=== PATIENT | male | born 1945 | race Hispanic/Latino ===

== ENCOUNTER → 2018-05-02 | Outpatient (CLI) | payer MEDICARE | END | disposition home or self-care (01) | LOC: SHCH 12:34 | PROVIDERS: ATTEND Internal Medicine Cardiovascular Disease | DX: I70.0 Atherosclerosis of aorta (principal); I10 Essential (primary) hypertension; I48.91 Unspecified atrial fibrillation | CPT/HCPCS: 93306 ==

== ENCOUNTER → 2021-11-04 | Outpatient (CLI) | payer MEDICARE | END | disposition home or self-care (01) | LOC: SHCH 10:21 | PROVIDERS: ATTEND Internal Medicine Cardiovascular Disease | DX: I87.2 Venous insufficiency (chronic) (peripheral) (principal) | CPT/HCPCS: 93970 ==

== ENCOUNTER 2022-01-07 17:56 | Emergency (ER) | payer MEDICARE ==
[~2022-01-07] VITALS: Ht 165.1 cm; Wt 67.1 kg
[2022-01-07 21:10] LABS: BASOPHILS % (AUTO) 0.6 % (0.0-5.0); EOSINOPHILS % (AUTO) 2.8 % (0.0-8.0); HEMATOCRIT 33.1 % (42-54); LYMPHOCYTES % (AUTO) 24.2 % (21.0-51.0); MEAN CORPUSCULAR HEMOGLOBIN 28.3 pg (27.0-33.0); MEAN CORPUSCULAR VOLUME 88.3 fL (79-99); MONOCYTES % (AUTO) 10.9 % (3.0-13.0); NEUTROPHILS % (AUTO) 61.3 % (40.0-77.0); PLATELET COUNT (AUTO) 228 K/uL (130-400); RED BLOOD CELL COUNT(AUTO) 3.75 MIL/uL (4.50-6.20)
[2022-01-07 21:22] LABS: CREATININE 1.6 mg/dL (0.5-1.5); POTASSIUM 4.1 mmol/L (3.5-5.1)
[2022-01-07 21:28] LABS: ALBUMIN 2.8 g/dL (3.5-5.0); BILIRUBIN,TOTAL 0.3 mg/dL (0.2-1.0); TOTAL PROTEIN, SERUM 7.5 g/dL (6.0-8.3)
[2022-01-07] MEDS ORDERED: LEVOFLOXACIN 750 MG/D5W 150 ML 150 ML IV SCH (22:00)
[2022-01-07] MEDS ORDERED: CLINDAMYCIN IVPB 600MG/50ML 50 ML IV SCH (22:00)
[2022-01-07 22:12] LABS: HEMOGLOBIN A1C 7.6 % (4.0-6.0)
[2022-01-08] MEDS ORDERED: BACI3.5O22 OP (00:05)
[2022-01-08] MEDS ORDERED: TRAM50TA4 PO (00:05)
[2022-01-08] MEDS ORDERED: INSU100I35 SQ ×2 (00:05)
[2022-01-08] MEDS ORDERED: DOXY100T2 PO (00:05)
[2022-01-08] MEDS ORDERED: NITR0.4T SL (00:14)
[2022-01-08] MEDS ORDERED: DILT30 PO (00:14)
[2022-01-08] MEDS ORDERED: POLY17PO4 PO (00:14)
[2022-01-08] MEDS ORDERED: METF-446 PO (00:14)
[2022-01-08] MEDS ORDERED: RANO500T2 PO (00:14)
[2022-01-08] MEDS ORDERED: WARF2.5T85 PO (00:14)
[2022-01-08] MEDS ORDERED: CEPH500B PO (00:14)
[2022-01-08] MEDS ORDERED: MULT-1289 PO (00:14)
[2022-01-08] MEDS ORDERED: TAMS-1 PO (00:14)
[2022-01-08] MEDS ORDERED: ISOS20TA85 PO (00:14)
[2022-01-08] MEDS ORDERED: UREA113. TP (00:14)
[2022-01-08] MEDS ORDERED: CYCL5TAB PO (00:14)
[2022-01-08] MEDS ORDERED: ATOR10 PO (00:14)
[2022-01-08] MEDS ORDERED: ASPI-1197 PO (00:14)
[2022-01-08] MEDS ORDERED: LEVO750T46 PO (01:44)
[2022-01-08] MEDS ORDERED: CLIN-141 PO (01:44)
[2022-01-08 02:12] VITALS: BP 142/18
== END 2022-01-08 02:04 | disposition home or self-care (01) ==
LOC: EDH 17:56
DX: E11.621 Type 2 diabetes mellitus with foot ulcer (principal); L97.519 Non-pressure chronic ulcer of other part of right foot with unspecified severity; E78.00 Pure hypercholesterolemia, unspecified; Z20.822 Contact with and (suspected) exposure to COVID-19; I11.9 Hypertensive heart disease without heart failure; Z79.01 Long term (current) use of anticoagulants; Z79.4 Long term (current) use of insulin; Z79.82 Long term (current) use of aspirin
CPT/HCPCS: 36415; 73630; 73700; 80053; 83036; 85025; 85651; 86140; 87070; 87076; 87077; 87186; 87635; 96365; 96366; 96368; 99285; C9803; J1956; J3490

== ENCOUNTER → 2022-05-20 | Outpatient (CLI) | payer MEDICARE ==
[~2022-05-20] MED LIST: ASPI-1197 PO; ATOR10 PO; BACI3.5O22 OP; CEPH500B PO; CLIN-141 PO; CYCL5TAB PO; DILT30 PO; DOXY100T2 PO; INSU100I35 SQ; ISOS20TA85 PO; LEVO750T46 PO; METF-446 PO; MULT-1289 PO; NITR0.4T SL; POLY17PO4 PO; RANO500T2 PO; TAMS-1 PO; TRAM50TA4 PO; UREA113. TP; WARF2.5T85 PO
[2022-05-20 12:30] LABS: EOSINOPHILS % (AUTO) 6.3 % (0.0-8.0); HEMATOCRIT 27.5 % (42-54); MEAN CORPUSCULAR HEMOGLOBIN 27.6 pg (27.0-33.0); MEAN CORPUSCULAR VOLUME 86.2 fL (79-99); MONOCYTES % (AUTO) 6.6 % (3.0-13.0); NEUTROPHILS % (AUTO) 53.6 % (40.0-77.0); PLATELET COUNT (AUTO) 300 K/uL (130-400); RED BLOOD CELL COUNT(AUTO) 3.19 MIL/uL (4.50-6.20); RED CELL DISTRIBUTION WIDTH 16.2 % (11.0-15.5); WHITE BLOOD COUNT (AUTO) 3.8 K/uL (4.8-10.8)
[2022-05-20 12:49] LABS: CREATININE 1.5 mg/dL (0.5-1.5); POTASSIUM 4.7 mmol/L (3.5-5.1)
[2022-05-20 12:58] LABS: INR 2.81 (0.85-1.15); PROTHROMBIN TIME 28.9 SEC (9.6-11.6)
[2022-05-20 12:59] LABS: PARTIAL THROMBOPLASTIN TIME 44.1 SEC (26.3-35.5)
== END | disposition home or self-care (01) ==
LOC: LAB 08:31
PROVIDERS: ATTEND Internal Medicine Cardiovascular Disease
DX: I25.118 Atherosclerotic heart disease of native coronary artery with other forms of angina pectoris (principal); I11.9 Hypertensive heart disease without heart failure; I48.21 Permanent atrial fibrillation; Z79.01 Long term (current) use of anticoagulants; Z95.5 Presence of coronary angioplasty implant and graft
CPT/HCPCS: 36415; 80048; 85025; 85610; 85730

== ENCOUNTER 2022-06-18 19:36 | Inpatient (IN) | payer MEDICARE ==
[~2022-06-18] VITALS: Ht 165.1 cm; Wt 70.4 kg
[2022-06-18] MEDS ORDERED: ZOSYN 3.375GM +NS 50ML IV SCH (20:00)
[2022-06-18] MEDS ORDERED: VANCOMYCIN 1G VIAL IVPB ONE (20:00)
[2022-06-18 20:05] LABS: APPEARANCE,URINE CLEAR (CLEAR); BILIRUBIN,URINE NEGATIVE (NEGATIVE); COLOR,URINE YELLOW (YELLOW); GLUCOSE, URINE (UA) NEGATIVE (NEGATIVE); KETONES,URINE NEGATIVE (NEGATIVE); LEUKOCYTE ESTERASE ,URINE NEGATIVE (NEGATIVE); NITRATE,URINE NEGATIVE (NEGATIVE); OCCULT BLOOD,URINE NEGATIVE (NEGATIVE); PROTEIN,URINE NEGATIVE (NEGATIVE); UROBILINOGEN,URINE 0.2 mg/dL (0.2-1.0)
[2022-06-18 20:05] LABS: BASOPHILS % (AUTO) 0.1 % (0.0-5.0); EOSINOPHILS % (AUTO) 0.7 % (0.0-8.0); HEMATOCRIT 25.8 % (42-54); LYMPHOCYTES % (AUTO) 12.7 % (21.0-51.0); MEAN CORPUSCULAR HEMOGLOBIN 27.2 pg (27.0-33.0); MEAN CORPUSCULAR HGB CONC 32.9 g/dL (32.0-36.0); MEAN CORPUSCULAR VOLUME 82.4 fL (79-99); MONOCYTES % (AUTO) 8.3 % (3.0-13.0); NEUTROPHILS % (AUTO) 77.9 % (40.0-77.0); PLATELET COUNT (AUTO) 265 K/uL (130-400); RED BLOOD CELL COUNT(AUTO) 3.13 MIL/uL (4.50-6.20); RED CELL DISTRIBUTION WIDTH 17.8 % (11.0-15.5)
[2022-06-18 20:17] LABS: CREATININE 1.9 mg/dL (0.5-1.5); POTASSIUM 4.3 mmol/L (3.5-5.1)
[2022-06-18 20:21] LABS: ALBUMIN 2.5 g/dL (3.5-5.0); TOTAL PROTEIN, SERUM 7.7 g/dL (6.0-8.3)
[2022-06-18] MEDS ORDERED: KETOROLAC 15MG/ML VIAL (15MG/ML) ONE (20:41)
[2022-06-18 20:42] LABS: CRP QUANTITATIVE 129.2 mg/L (0.00-9.0)
[2022-06-18 21:17] LABS: INR > 7.00 (0.85-1.15); PARTIAL THROMBOPLASTIN TIME 92.4 SEC (26.3-35.5); PROTHROMBIN TIME 85.9 SEC (9.6-11.6)
[2022-06-18] MEDS ORDERED: ONDANSETRON 4MG INJ IV PRN (21:30)
[2022-06-18] MEDS ORDERED: ACETAMINOPHEN 325 MG TAB PO PRN ×2 (21:30)
[2022-06-18] MEDS ORDERED: VANCOMYCIN 1G/250ML KIT 250 ML IV ONE (21:30)
[2022-06-18] MEDS ORDERED: VANCOMYCIN PROTOCOL PER PHARMACY IV PRN (21:30)
[2022-06-18] MEDS: 0.9%NACL 1000ML 1,000 ML IV SCH (21:43)
[2022-06-18] MEDS: PHYTONADIONE 10 MG/1 ML AMP IM ONE ×2 (21:52→21:54)
[2022-06-18] MEDS ORDERED: WARF2.5T85 PO (22:31)
[2022-06-18] MEDS ORDERED: OMEP20TA20 PO (22:31)
[2022-06-18] MEDS ORDERED: LISI2.5T13 PO (22:31)
[2022-06-18] MEDS ORDERED: ATOR10 PO (22:31)
[2022-06-18] MEDS ORDERED: DILT30TA3 PO (22:31)
[2022-06-18] MEDS ORDERED: ISOS30TA92 PO (22:31)
[2022-06-18] MEDS ORDERED: RANO500T6 PO (22:31)
[2022-06-18] MEDS ORDERED: TAMS-1 PO (22:31)
[2022-06-18 23:00] VITALS: BP 107/61
[2022-06-19 04:33] VITALS: BP 112/66
[2022-06-19 05:06] LABS: BASOPHILS % (AUTO) 0.3 % (0.0-5.0); EOSINOPHILS % (AUTO) 1.9 % (0.0-8.0); HEMATOCRIT 22.5 % (42-54); LYMPHOCYTES % (AUTO) 13.8 % (21.0-51.0); MEAN CORPUSCULAR HEMOGLOBIN 26.9 pg (27.0-33.0); MONOCYTES % (AUTO) 8.7 % (3.0-13.0); NEUTROPHILS % (AUTO) 74.8 % (40.0-77.0); PLATELET COUNT (AUTO) 215 K/uL (130-400); RED BLOOD CELL COUNT(AUTO) 2.68 MIL/uL (4.50-6.20); RED CELL DISTRIBUTION WIDTH 18.1 % (11.0-15.5); WHITE BLOOD COUNT (AUTO) 5.9 K/uL (4.8-10.8)
[2022-06-19 05:30] LABS: ALBUMIN 1.8 g/dL (3.5-5.0); CREATININE 1.8 mg/dL (0.5-1.5); CRP QUANTITATIVE 161.8 mg/L (0.00-9.0); POTASSIUM 4.2 mmol/L (3.5-5.1); TOTAL PROTEIN, SERUM 6.2 g/dL (6.0-8.3)
[2022-06-19 06:03] LABS: INR 6.48 (0.85-1.15); PROTHROMBIN TIME 63.5 SEC (9.6-11.6)
[2022-06-19 06:04] LABS: PARTIAL THROMBOPLASTIN TIME 98.5 SEC (26.3-35.5)
[2022-06-19 06:16] LABS: ERYTHROCYTE SEDIMENTATION RATE 116 MM/HR (0-20)
[2022-06-19] MEDS ORDERED: INSULIN HUMULIN R 100 UNIT/ML 3ML SQ SCH ×2 (07:30)
[2022-06-19] MEDS ORDERED: ZOSYN 3.375GM+NS 50ML 50 ML ONE (07:38)
[2022-06-19 07:40] VITALS: BP 132/72
[2022-06-19] MEDS: ZOSYN 3.375GM+NS 50ML 50 ML IV SCH ×2 (07:55→21:38)
[2022-06-19] MEDS: FAMOTIDINE 20MG VIAL IV SCH (07:55)
[2022-06-19] MEDS ORDERED: NITR0.4T50 SL (08:06)
[2022-06-19] MEDS: NITROGLYCERIN 0.4 MG SL TAB SL PRN ×2 (08:20→11:53)
[2022-06-19] MEDS: RANOLAZINE 500 MG TAB.SR.12H PO SCH ×2 (10:01→21:39)
[2022-06-19 11:40] VITALS: BP 158/93
[2022-06-19] MEDS: INSULIN HUMULIN R 100 UNIT/ML 3ML SQ SCH ×3 (12:07→21:00)
[2022-06-19] MEDS ORDERED: DILTIAZEM 60MG TAB PO SCH ×2 (12:20→14:00)
[2022-06-19] MEDS: DILTIAZEM 60MG TAB PO SCH ×3 (12:32→21:39)
[2022-06-19] MEDS: MORPHINE 2 MG SYG IV PRN (12:42)
[2022-06-19 15:40] VITALS: BP 110/55
[2022-06-19] MEDS ORDERED: DIPH,PERTUSS(ACELL),TET VAC/PF 0.5 ML VIAL IM ONE (16:00)
[2022-06-19] MEDS ORDERED: 0.9% NACL 250ML 250 ML ONE (17:32)
[2022-06-19] MEDS: VANCOMYCIN 1G/250ML KIT 250 ML IV SCH (17:34)
[2022-06-19 21:24] VITALS: BP 123/62
[2022-06-19] MEDS: ATORVASTATIN 20 MG TABLET PO SCH (21:39)
[2022-06-20] VITALS (7 sets, daily range): BP systolic 105–132; BP diastolic 47–70
[2022-06-20 05:19] LABS: MEAN CORPUSCULAR HEMOGLOBIN 26.9 pg (27.0-33.0); MEAN CORPUSCULAR HGB CONC 32.3 g/dL (32.0-36.0); MEAN CORPUSCULAR VOLUME 83.3 fL (79-99); RED BLOOD CELL COUNT(AUTO) 2.64 MIL/uL (4.50-6.20); RED CELL DISTRIBUTION WIDTH 18.1 % (11.0-15.5)
[2022-06-20] MEDS: INSULIN HUMULIN R 100 UNIT/ML 3ML SQ SCH ×4 (06:16→21:00)
[2022-06-20] MEDS: DILTIAZEM 60MG TAB PO SCH ×2 (08:46→14:16)
[2022-06-20] MEDS: RANOLAZINE 500 MG TAB.SR.12H PO SCH ×2 (08:46→21:17)
[2022-06-20] MEDS: TAMSULOSIN HCL 0.4 MG CAP.ER.24H PO SCH (08:46)
[2022-06-20] MEDS: ZOSYN 3.375GM+NS 50ML 50 ML IV SCH ×2 (08:46→21:16)
[2022-06-20] MEDS: FAMOTIDINE 20MG VIAL IV SCH (08:46)
[2022-06-20 09:07] LABS: ALBUMIN 1.9 g/dL (3.5-5.0); CREATININE 1.5 mg/dL (0.5-1.5); POTASSIUM 4.2 mmol/L (3.5-5.1)
[2022-06-20 09:30] LABS: CRP QUANTITATIVE 132.5 mg/L (0.00-9.0)
[2022-06-20] MEDS: MORPHINE 2 MG SYG IV PRN ×2 (10:49→14:17)
[2022-06-20] MEDS: 0.9%NACL 1000ML 1,000 ML IV SCH (16:08)
[2022-06-20] MEDS: VANCOMYCIN 1G/250ML KIT 250 ML IV SCH (18:30)
[2022-06-20] MEDS ORDERED: DILTIAZEM 60MG TAB PO SCH (21:00)
[2022-06-20] MEDS: ATORVASTATIN 20 MG TABLET PO SCH (21:17)
[2022-06-21 03:21] VITALS: BP 126/58
[2022-06-21 06:16] LABS: HEMATOCRIT 22.1 % (42-54); MEAN CORPUSCULAR HEMOGLOBIN 27.1 pg (27.0-33.0); MEAN CORPUSCULAR HGB CONC 32.6 g/dL (32.0-36.0); MEAN CORPUSCULAR VOLUME 83.1 fL (79-99); RED BLOOD CELL COUNT(AUTO) 2.66 MIL/uL (4.50-6.20); RED CELL DISTRIBUTION WIDTH 18.3 % (11.0-15.5); WHITE BLOOD COUNT (AUTO) 5.8 K/uL (4.8-10.8)
[2022-06-21 06:32] LABS: INR 1.36 (0.85-1.15); PROTHROMBIN TIME 14.6 SEC (9.6-11.6)
[2022-06-21] MEDS: INSULIN HUMULIN R 100 UNIT/ML 3ML SQ SCH ×4 (06:37→21:00)
[2022-06-21 06:44] LABS: CREATININE 1.5 mg/dL (0.5-1.5); CRP QUANTITATIVE 111.1 mg/L (0.00-9.0); POTASSIUM 4.3 mmol/L (3.5-5.1)
[2022-06-21 07:40] VITALS: BP 133/67
[2022-06-21] MEDS: 0.9%NACL 1000ML 1,000 ML IV SCH (09:30)
[2022-06-21] MEDS: RANOLAZINE 500 MG TAB.SR.12H PO SCH ×2 (09:39→21:02)
[2022-06-21] MEDS: FAMOTIDINE 20MG VIAL IV SCH (09:39)
[2022-06-21] MEDS: TAMSULOSIN HCL 0.4 MG CAP.ER.24H PO SCH (09:39)
[2022-06-21] MEDS: DILTIAZEM 120MG SR CAP PO SCH (09:39)
[2022-06-21] MEDS: ZOSYN 3.375GM+NS 50ML 50 ML IV SCH ×2 (09:39→21:02)
[2022-06-21 11:26] LABS: BASOPHILS % (AUTO) 0.4 % (0.0-5.0); EOSINOPHILS % (AUTO) 2.2 % (0.0-8.0); HEMATOCRIT 25.1 % (42-54); LYMPHOCYTES % (AUTO) 16.1 % (21.0-51.0); MEAN CORPUSCULAR HEMOGLOBIN 26.6 pg (27.0-33.0); MEAN CORPUSCULAR HGB CONC 31.5 g/dL (32.0-36.0); MEAN CORPUSCULAR VOLUME 84.5 fL (79-99); MONOCYTES % (AUTO) 7.5 % (3.0-13.0); NEUTROPHILS % (AUTO) 73.2 % (40.0-77.0); PLATELET COUNT (AUTO) 280 K/uL (130-400); RED BLOOD CELL COUNT(AUTO) 2.97 MIL/uL (4.50-6.20); RED CELL DISTRIBUTION WIDTH 18.2 % (11.0-15.5)
[2022-06-21 11:30] VITALS: BP 139/77
[2022-06-21] MEDS ORDERED: HEPARIN 5,000 UNIT VIAL ONE (11:41)
[2022-06-21] MEDS: HEPARIN 25,000 UNITS/250ML D5W 250 ML IV SCH ×2 (11:54→18:31)
[2022-06-21] MEDS: HEPARIN 5,000 UNIT VIAL IV SCH (11:55)
[2022-06-21] MEDS: MORPHINE 2 MG SYG IV PRN ×2 (12:56→21:04)
[2022-06-21 13:22] LABS: APPEARANCE,URINE CLEAR (CLEAR); BILIRUBIN,URINE NEGATIVE (NEGATIVE); COLOR,URINE YELLOW (YELLOW); GLUCOSE, URINE (UA) 500 mg/dL (NEGATIVE); KETONES,URINE NEGATIVE (NEGATIVE); LEUKOCYTE ESTERASE ,URINE NEGATIVE (NEGATIVE); NITRATE,URINE NEGATIVE (NEGATIVE); OCCULT BLOOD,URINE NEGATIVE (NEGATIVE); PH,URINE 5.5 (5.0-8.0); PROTEIN,URINE NEGATIVE (NEGATIVE)
[2022-06-21 13:52] LABS: BACTERIA,URINE Rare /HPF (None Seen); RBC,URINE None Seen /HPF (0-1); WBC,URINE None Seen /HPF (0-1)
[2022-06-21 13:53] LABS: SQUAMOUS EPITHELIAL CELL,UR 0-2 /HPF (0-2)
[2022-06-21 15:25] VITALS: BP 127/59
[2022-06-21] MEDS ORDERED: ASPIRIN 81 MG EC TAB PO ONE (17:00)
[2022-06-21] MEDS: VANCOMYCIN 1G/250ML KIT 250 ML IV SCH (18:26)
[2022-06-21] MEDS ORDERED: COMPOUND IV REFRIGERATED 1 EACH IVSOLN MISC PRN (19:30)
[2022-06-21 20:25] VITALS: BP 130/60
[2022-06-21] MEDS: ATORVASTATIN 20 MG TABLET PO SCH (21:02)
[2022-06-21 23:35] VITALS: BP 125/68
[2022-06-22] VITALS (17 sets, daily range): BP systolic 118–169; BP diastolic 61–92
[2022-06-22 05:21] LABS: MEAN CORPUSCULAR HEMOGLOBIN 26.5 pg (27.0-33.0); MEAN CORPUSCULAR HGB CONC 31.5 g/dL (32.0-36.0); MEAN CORPUSCULAR VOLUME 84.1 fL (79-99); RED BLOOD CELL COUNT(AUTO) 3.09 MIL/uL (4.50-6.20); RED CELL DISTRIBUTION WIDTH 17.9 % (11.0-15.5); WHITE BLOOD COUNT (AUTO) 4.8 K/uL (4.8-10.8)
[2022-06-22] MEDS: 0.9%NACL 1000ML 1,000 ML IV SCH ×3 (05:30→20:37)
[2022-06-22 05:32] LABS: INR 1.28 (0.85-1.15); PROTHROMBIN TIME 13.8 SEC (9.6-11.6)
[2022-06-22 05:34] LABS: CREATININE 1.3 mg/dL (0.5-1.5); POTASSIUM 4.6 mmol/L (3.5-5.1)
[2022-06-22] MEDS: INSULIN HUMULIN R 100 UNIT/ML 3ML SQ SCH ×5 (07:30→21:00)
[2022-06-22 08:13] LABS: INR 1.3 (0.85-1.15)
[2022-06-22 08:15] LABS: PARTIAL THROMBOPLASTIN TIME 38.4 SEC (26.3-35.5)
[2022-06-22] MEDS: DILTIAZEM 120MG SR CAP PO SCH (09:00)
[2022-06-22] MEDS: ASPIRIN 81 MG EC TAB PO SCH (09:00)
[2022-06-22] MEDS: RANOLAZINE 500 MG TAB.SR.12H PO SCH ×2 (09:00→21:30)
[2022-06-22] MEDS: TAMSULOSIN HCL 0.4 MG CAP.ER.24H PO SCH (09:00)
[2022-06-22] MEDS: VANCOMYCIN 1.25 GM/250 ML BAG 250 ML IV SCH (09:21)
[2022-06-22] MEDS: ZOSYN 3.375GM+NS 50ML 50 ML IV SCH ×2 (09:23→22:49)
[2022-06-22] MEDS: FAMOTIDINE 20MG VIAL IV SCH (09:23)
[2022-06-22] MEDS: MORPHINE 2 MG SYG IV PRN ×2 (10:42→21:35)
[2022-06-22] MEDS: HEPARIN 5,000 UNIT VIAL IV SCH (12:00)
[2022-06-22] MEDS ORDERED: MIDAZOLAM HCL 1 MG/ML 2ML VIAL ONE (18:01)
[2022-06-22] MEDS ORDERED: FENTANYL CITRATE PF 50 MCG/1 ML 2ML VIAL ONE ×2 (18:01→20:07)
[2022-06-22] MEDS ORDERED: LIDOCAINE HCL 400MG/20ML VIAL ONE (18:12)
[2022-06-22] MEDS ORDERED: BUPIVACAINE/PF 0.5% 30ML VIAL ONE (18:12)
[2022-06-22] MEDS ORDERED: PROPOFOL 1000 MG/100 ML 100 ML IV ONE (18:19)
[2022-06-22] MEDS: NITROGLYCERIN 0.4 MG SL TAB SL PRN (18:47)
[2022-06-22] MEDS ORDERED: PHENYLEPHRINE HCL 10 MG/ML 1ML VIAL IV ONE (19:25)
[2022-06-22 20:06] LABS: HEMATOCRIT 22.1 % (42-54)
[2022-06-22] MEDS ORDERED: ONDANSETRON 4MG INJ ONE (20:07)
[2022-06-22] MEDS: ATORVASTATIN 20 MG TABLET PO SCH (21:30)
[2022-06-23] VITALS (8 sets, daily range): BP systolic 117–146; BP diastolic 67–85
[2022-06-23] MEDS: 0.9%NACL 1000ML 1,000 ML IV SCH ×2 (00:35→22:26)
[2022-06-23] MEDS: MORPHINE 2 MG SYG IV PRN ×2 (01:16→06:33)
[2022-06-23] MEDS ORDERED: HYDROMORPHONE 0.5 MG SYG (0.5MG/0.5ML) ONE (02:18)
[2022-06-23] MEDS ORDERED: HYDROMORPHONE 0.5 MG SYG (0.5MG/0.5ML) IVP ONE (02:30)
[2022-06-23 05:08] LABS: HEMATOCRIT 25.3 % (42-54); MEAN CORPUSCULAR HEMOGLOBIN 27.2 pg (27.0-33.0); MEAN CORPUSCULAR HGB CONC 32.4 g/dL (32.0-36.0); MEAN CORPUSCULAR VOLUME 83.8 fL (79-99); RED BLOOD CELL COUNT(AUTO) 3.02 MIL/uL (4.50-6.20); RED CELL DISTRIBUTION WIDTH 17.2 % (11.0-15.5); WHITE BLOOD COUNT (AUTO) 5.9 K/uL (4.8-10.8)
[2022-06-23 05:23] LABS: CREATININE 1.2 mg/dL (0.5-1.5); POTASSIUM 4.3 mmol/L (3.5-5.1)
[2022-06-23] MEDS: INSULIN HUMULIN R 100 UNIT/ML 3ML SQ SCH ×4 (07:30→21:00)
[2022-06-23] MEDS: ZOSYN 3.375GM+NS 50ML 50 ML IV SCH ×2 (08:52→22:26)
[2022-06-23] MEDS: FAMOTIDINE 20MG VIAL IV SCH (08:53)
[2022-06-23] MEDS: RANOLAZINE 500 MG TAB.SR.12H PO SCH ×2 (08:53→22:25)
[2022-06-23] MEDS: TAMSULOSIN HCL 0.4 MG CAP.ER.24H PO SCH (08:53)
[2022-06-23] MEDS: DILTIAZEM 120MG SR CAP PO SCH (08:53)
[2022-06-23] MEDS: ASPIRIN 81 MG EC TAB PO SCH (08:53)
[2022-06-23] MEDS: HYDROMORPHONE 0.5 MG SYG (0.5MG/0.5ML) IVP PRN ×2 (08:54→13:42)
[2022-06-23] MEDS: VANCOMYCIN 1.25 GM/250 ML BAG 250 ML IV SCH (09:11)
[2022-06-23] MEDS: HEPARIN 5,000 UNIT VIAL IV SCH (12:00)
[2022-06-23] MEDS: ATORVASTATIN 20 MG TABLET PO SCH (22:25)
[2022-06-24] VITALS (7 sets, daily range): BP systolic 114–141; BP diastolic 58–77
[2022-06-24] MEDS: INSULIN HUMULIN R 100 UNIT/ML 3ML SQ SCH ×4 (07:30→21:40)
[2022-06-24 07:58] LABS: HEMATOCRIT 23.1 % (42-54); MEAN CORPUSCULAR HEMOGLOBIN 27.4 pg (27.0-33.0); MEAN CORPUSCULAR HGB CONC 32.9 g/dL (32.0-36.0); MEAN CORPUSCULAR VOLUME 83.4 fL (79-99); RED BLOOD CELL COUNT(AUTO) 2.77 MIL/uL (4.50-6.20); RED CELL DISTRIBUTION WIDTH 17.3 % (11.0-15.5); WHITE BLOOD COUNT (AUTO) 6.4 K/uL (4.8-10.8)
[2022-06-24 08:31] LABS: CREATININE 1.3 mg/dL (0.5-1.5); POTASSIUM 4.3 mmol/L (3.5-5.1)
[2022-06-24] MEDS: ASPIRIN 81 MG EC TAB PO SCH (09:20)
[2022-06-24] MEDS: DILTIAZEM 120MG SR CAP PO SCH (09:20)
[2022-06-24] MEDS: FAMOTIDINE 20MG VIAL IV SCH (09:20)
[2022-06-24] MEDS: TAMSULOSIN HCL 0.4 MG CAP.ER.24H PO SCH (09:20)
[2022-06-24] MEDS: RANOLAZINE 500 MG TAB.SR.12H PO SCH ×2 (09:20→21:43)
[2022-06-24] MEDS: VANCOMYCIN 1.25 GM/250 ML BAG 250 ML IV SCH (09:21)
[2022-06-24] MEDS: ZOSYN 3.375GM+NS 50ML 50 ML IV SCH ×2 (09:21→21:43)
[2022-06-24 09:43] LABS: INR 1.32 (0.85-1.15); PROTHROMBIN TIME 14.2 SEC (9.6-11.6)
[2022-06-24] MEDS: HYDROMORPHONE 0.5 MG SYG (0.5MG/0.5ML) IVP PRN ×3 (10:34→21:56)
[2022-06-24] MEDS ORDERED: WARFARIN SODIUM 2.5 MG TAB PO SCH ×2 (13:30→15:00)
[2022-06-24] MEDS ORDERED: WARFARIN SODIUM 5 MG TAB PO SCH (16:30)
[2022-06-24] MEDS: ATORVASTATIN 20 MG TABLET PO SCH (21:43)
[2022-06-24] MEDS: 0.9%NACL 1000ML 1,000 ML IV SCH (21:59)
[2022-06-25 04:01] VITALS: BP 101/60
[2022-06-25 05:38] LABS: BASOPHILS % (AUTO) 0.3 % (0.0-5.0); EOSINOPHILS % (AUTO) 3.7 % (0.0-8.0); HEMATOCRIT 22.3 % (42-54); LYMPHOCYTES % (AUTO) 17.3 % (21.0-51.0); MEAN CORPUSCULAR HEMOGLOBIN 27.1 pg (27.0-33.0); MEAN CORPUSCULAR HGB CONC 31.8 g/dL (32.0-36.0); MEAN CORPUSCULAR VOLUME 85.1 fL (79-99); MONOCYTES % (AUTO) 7.6 % (3.0-13.0); NEUTROPHILS % (AUTO) 70.5 % (40.0-77.0); PLATELET COUNT (AUTO) 219 K/uL (130-400); RED BLOOD CELL COUNT(AUTO) 2.62 MIL/uL (4.50-6.20); RED CELL DISTRIBUTION WIDTH 17.2 % (11.0-15.5); WHITE BLOOD COUNT (AUTO) 6.2 K/uL (4.8-10.8)
[2022-06-25 05:56] LABS: ALBUMIN 1.8 g/dL (3.5-5.0); CREATININE 1.7 mg/dL (0.5-1.5); MAGNESIUM 1.6 mg/dL (1.80-2.40); POTASSIUM 4.1 mmol/L (3.5-5.1); TOTAL PROTEIN, SERUM 6.1 g/dL (6.0-8.3)
[2022-06-25] MEDS: INSULIN HUMULIN R 100 UNIT/ML 3ML SQ SCH ×3 (07:30→16:02)
[2022-06-25 08:00] VITALS: BP 133/74
[2022-06-25 09:43] LABS: INR 1.36 (0.85-1.15); PROTHROMBIN TIME 14.6 SEC (9.6-11.6)
[2022-06-25 09:44] LABS: PARTIAL THROMBOPLASTIN TIME 40.2 SEC (26.3-35.5)
[2022-06-25] MEDS: ZOSYN 3.375GM+NS 50ML 50 ML IV SCH (10:21)
[2022-06-25] MEDS: VANCOMYCIN 1.25 GM/250 ML BAG 250 ML IV SCH (10:21)
[2022-06-25] MEDS: FAMOTIDINE 20MG VIAL IV SCH (10:22)
[2022-06-25] MEDS: DILTIAZEM 120MG SR CAP PO SCH (10:22)
[2022-06-25] MEDS: RANOLAZINE 500 MG TAB.SR.12H PO SCH (10:22)
[2022-06-25] MEDS: TAMSULOSIN HCL 0.4 MG CAP.ER.24H PO SCH (10:22)
[2022-06-25] MEDS: ASPIRIN 81 MG EC TAB PO SCH (10:22)
[2022-06-25 12:00] VITALS: BP 156/64
[2022-06-25] MEDS: HYDROMORPHONE 0.5 MG SYG (0.5MG/0.5ML) IVP PRN (12:16)
[2022-06-25] MEDS ORDERED: WARFARIN SODIUM 5 MG TAB PO SCH (16:00)
== END 2022-06-25 16:17 | DRG 616 ==
LOC: EDH 19:36 → EDHIP 21:10 → 3BH 22:50
PROVIDERS: ADMIT Hospitalist; ATTEND Hospitalist
PROC: 0Y6M0ZB Detachment at Right Foot, Partial 2nd Ray, Open Approach (ICD-10-PCS; 2022-06-22)
PROC: 0Y6M0ZC Detachment at Right Foot, Partial 3rd Ray, Open Approach (ICD-10-PCS; 2022-06-22)
PROC: 0Y6M0ZD Detachment at Right Foot, Partial 4th Ray, Open Approach (ICD-10-PCS; 2022-06-22)
PROC: 0Y6M0ZF Detachment at Right Foot, Partial 5th Ray, Open Approach (ICD-10-PCS; 2022-06-22)
PROC: 0LQV0ZZ Repair Right Foot Tendon, Open Approach (ICD-10-PCS; 2022-06-22)
PROC: 30233N1 Transfusion of Nonautologous Red Blood Cells into Peripheral Vein, Percutaneous Approach (ICD-10-PCS; 2022-06-22)
PROC: 0Y6P0Z0 Detachment at Right 1st Toe, Complete, Open Approach (ICD-10-PCS; principal; 2022-06-22 19:00)
DX: E11.69 Type 2 diabetes mellitus with other specified complication (principal); E43 Unspecified severe protein-calorie malnutrition; D62 Acute posthemorrhagic anemia; I48.21 Permanent atrial fibrillation; D68.59 Other primary thrombophilia; I13.0 Hypertensive heart and chronic kidney disease with heart failure and stage 1 through stage 4 chronic kidney disease, or unspecified chronic kidney disease; L03.115 Cellulitis of right lower limb; Z16.12 Extended spectrum beta lactamase (ESBL) resistance; M86.671 Other chronic osteomyelitis, right ankle and foot; K92.2 Gastrointestinal hemorrhage, unspecified; E11.621 Type 2 diabetes mellitus with foot ulcer; E11.65 Type 2 diabetes mellitus with hyperglycemia; I25.118 Atherosclerotic heart disease of native coronary artery with other forms of angina pectoris; E11.51 Type 2 diabetes mellitus with diabetic peripheral angiopathy without gangrene; I87.2 Venous insufficiency (chronic) (peripheral); Z20.822 Contact with and (suspected) exposure to COVID-19; E78.00 Pure hypercholesterolemia, unspecified; Z79.899 Other long term (current) drug therapy; Z85.46 Personal history of malignant neoplasm of prostate; Z95.5 Presence of coronary angioplasty implant and graft; Z79.01 Long term (current) use of anticoagulants; Z83.3 Family history of diabetes mellitus; E66.9 Obesity, unspecified; L97.519 Non-pressure chronic ulcer of other part of right foot with unspecified severity; N40.0 Benign prostatic hyperplasia without lower urinary tract symptoms; Z68.25 Body mass index [BMI] 25.0-25.9, adult; E11.22 Type 2 diabetes mellitus with diabetic chronic kidney disease; E11.42 Type 2 diabetes mellitus with diabetic polyneuropathy; I50.9 Heart failure, unspecified; N18.9 Chronic kidney disease, unspecified; B96.1 Klebsiella pneumoniae [K. pneumoniae] as the cause of diseases classified elsewhere
CPT/HCPCS: 36415; 71045; 73630; 73718; 80048; 80053; 80202; 81001; 81003; 82040; 82270; 82948; 83605; 83735; 84145; 84153; 84484; 85014; 85018; 85025; 85027; 85610; 85651; 85730; 86140; 86850; 86900; 86901; 86923; 87040; 87070; 87076; 87077; 87186; 87205; 87635; 90715; 93005; 93306; 93356; 93925; 97039; C9803; G0378; J1170; J1644; J1815; J1885; J2250; J2370; J2405; J2543; J2704; J3010; J3370; J3430; J3490; J7030; J7050; P9016

== ENCOUNTER → 2022-08-06 | Outpatient (CLI) | payer MEDICARE ==
[~2022-08-06] MED LIST changes: -ASPI-1197 PO; -BACI3.5O22 OP; -CEPH500B PO; -CLIN-141 PO; -CYCL5TAB PO; -DILT30 PO; +DILT30TA3 PO; -DOXY100T2 PO; -INSU100I35 SQ; -ISOS20TA85 PO; +ISOS30TA92 PO; -LEVO750T46 PO; +LISI2.5T13 PO; -METF-446 PO; -MULT-1289 PO; -NITR0.4T SL; +NITR0.4T50 SL; +OMEP20TA20 PO; -POLY17PO4 PO; -RANO500T2 PO; +RANO500T6 PO; -TRAM50TA4 PO; -UREA113. TP; -WARF2.5T85 PO
== END | disposition home or self-care (01) ==
LOC: RAH 09:38
PROVIDERS: ATTEND Internal Medicine Cardiovascular Disease
DX: I87.1 Compression of vein (principal); M71.21 Synovial cyst of popliteal space [Baker], right knee; R59.0 Localized enlarged lymph nodes
CPT/HCPCS: 93970

== ENCOUNTER → 2022-09-21 | Outpatient (CLI) | payer MEDICARE | END | disposition home or self-care (01) | LOC: SHCH 10:58 | PROVIDERS: ATTEND Internal Medicine Cardiovascular Disease | DX: I87.2 Venous insufficiency (chronic) (peripheral) (principal); Z98.890 Other specified postprocedural states | CPT/HCPCS: 93970; 93971 ==

== ENCOUNTER → 2022-09-28 | Outpatient (CLI) | payer MEDICARE | END | disposition home or self-care (01) | LOC: SHCH 13:42 | PROVIDERS: ATTEND Internal Medicine Cardiovascular Disease | DX: I87.2 Venous insufficiency (chronic) (peripheral) (principal); Z98.890 Other specified postprocedural states | CPT/HCPCS: 93971 ==

== ENCOUNTER → 2023-04-13 | Outpatient (CLI) | payer MEDICARE | END | disposition home or self-care (01) | LOC: SHCH 07:41 | PROVIDERS: ATTEND Internal Medicine Cardiovascular Disease | DX: I87.2 Venous insufficiency (chronic) (peripheral) (principal); I87.1 Compression of vein; M71.21 Synovial cyst of popliteal space [Baker], right knee; Z98.890 Other specified postprocedural states | CPT/HCPCS: 93970 ==

== ENCOUNTER → 2024-01-25 | Outpatient (CLI) | payer MEDICARE | END | disposition home or self-care (01) | LOC: SHCH 13:27 | PROVIDERS: ATTEND Internal Medicine Cardiovascular Disease | DX: I87.2 Venous insufficiency (chronic) (peripheral) (principal); I87.1 Compression of vein | CPT/HCPCS: 93970 ==

== ENCOUNTER → 2024-04-10 | Outpatient (CLI) | payer MEDICARE | END | disposition home or self-care (01) | LOC: SHCH 12:08 | PROVIDERS: ATTEND Internal Medicine Cardiovascular Disease | DX: I87.2 Venous insufficiency (chronic) (peripheral) (principal) | CPT/HCPCS: 93971 ==

== ENCOUNTER → 2024-04-25 | Outpatient (CLI) | payer MEDICARE | END | disposition home or self-care (01) | LOC: SHCH 13:34 | PROVIDERS: ATTEND Internal Medicine Cardiovascular Disease | DX: I87.2 Venous insufficiency (chronic) (peripheral) (principal); Z09 Encounter for follow-up examination after completed treatment for conditions other than malignant neoplasm | CPT/HCPCS: 93971 ==

== ENCOUNTER → 2024-05-23 | Outpatient (CLI) | payer MEDICARE ==
[2024-05-23 12:55] LABS: INR 1.36 (0.85-1.15); PROTHROMBIN TIME 14.2 SEC (9.6-11.6)
== END | disposition home or self-care (01) ==
LOC: LAB 09:09
PROVIDERS: ATTEND Internal Medicine Cardiovascular Disease
DX: Z79.01 Long term (current) use of anticoagulants (principal)
CPT/HCPCS: 36415; 85610

== ENCOUNTER → 2024-06-06 | Outpatient (CLI) | payer MEDICARE ==
[2024-06-06] MEDS: REGADENOSON 0.4 MG/5 ML PF SYG IVP ONE (14:36)
== END | disposition home or self-care (01) ==
LOC: SHCH 08:02
PROVIDERS: ATTEND Internal Medicine Cardiovascular Disease
DX: I48.91 Unspecified atrial fibrillation (principal); R07.9 Chest pain, unspecified; R06.09 Other forms of dyspnea
CPT/HCPCS: 78452; 93017; J2785; A9500 ×2; 96374

== ENCOUNTER → 2024-06-08 | Outpatient (CLI) | payer MEDICARE ==
[2024-06-08 16:50] LABS: INR 2.1 (0.85-1.15); PROTHROMBIN TIME 21.5 SEC (9.6-11.6)
== END | disposition home or self-care (01) ==
LOC: LAB 11:53
PROVIDERS: ATTEND Internal Medicine Cardiovascular Disease
DX: Z79.01 Long term (current) use of anticoagulants (principal)
CPT/HCPCS: 36415; 85610

== ENCOUNTER → 2024-06-23 | Outpatient (CLI) | payer MEDICARE | END | disposition home or self-care (01) | LOC: SHCH 08:05 | PROVIDERS: ATTEND Internal Medicine Cardiovascular Disease | DX: R07.9 Chest pain, unspecified (principal); R06.09 Other forms of dyspnea; I20.9 Angina pectoris, unspecified; R94.4 Abnormal results of kidney function studies | CPT/HCPCS: 93306 ==

== ENCOUNTER → 2025-03-14 | Outpatient (CLI) | payer MEDICARE ==
[~2025-03-14] MED LIST changes: -TAMS-1 PO; +TAMS-55 PO
== END | disposition home or self-care (01) ==
LOC: WHH 08:22
PROVIDERS: ATTEND Podiatrist Foot & Ankle Surgery
DX: E11.621 Type 2 diabetes mellitus with foot ulcer (principal); L97.522 Non-pressure chronic ulcer of other part of left foot with fat layer exposed; E11.42 Type 2 diabetes mellitus with diabetic polyneuropathy; M21.6X9 Other acquired deformities of unspecified foot; I10 Essential (primary) hypertension; E78.5 Hyperlipidemia, unspecified; N40.0 Benign prostatic hyperplasia without lower urinary tract symptoms; K21.9 Gastro-esophageal reflux disease without esophagitis; I48.91 Unspecified atrial fibrillation; Z79.899 Other long term (current) drug therapy
CPT/HCPCS: 11042; A6207; A4450

== ENCOUNTER → 2025-03-20 | Outpatient (CLI) | payer MEDICARE ==
[2025-03-20 13:08] LABS: INR 2.34 (0.85-1.15); PROTHROMBIN TIME 22.8 SEC (9.6-11.6)
== END | disposition home or self-care (01) ==
LOC: LAB 08:03
PROVIDERS: ATTEND Internal Medicine Cardiovascular Disease
DX: I48.91 Unspecified atrial fibrillation (principal); Z79.01 Long term (current) use of anticoagulants
CPT/HCPCS: 36415; 85610

== ENCOUNTER → 2025-03-28 | Outpatient (CLI) | payer MEDICARE ==
[~2025-03-28] MED LIST changes: +LIDOCAINE HCL 4% LTA SOL 4 ML VIAL TP ONE
== END | disposition home or self-care (01) ==
LOC: WHH 08:36
PROVIDERS: ATTEND Podiatrist Foot & Ankle Surgery
DX: E11.621 Type 2 diabetes mellitus with foot ulcer (principal); L97.521 Non-pressure chronic ulcer of other part of left foot limited to breakdown of skin; E11.42 Type 2 diabetes mellitus with diabetic polyneuropathy; I10 Essential (primary) hypertension; E78.5 Hyperlipidemia, unspecified; K21.9 Gastro-esophageal reflux disease without esophagitis; I48.91 Unspecified atrial fibrillation; N40.0 Benign prostatic hyperplasia without lower urinary tract symptoms; M21.6X9 Other acquired deformities of unspecified foot; Z79.899 Other long term (current) drug therapy
CPT/HCPCS: 97597; A6207

== ENCOUNTER → 2025-04-11 | Outpatient (CLI) | payer MEDICARE ==
[~2025-04-11] MED LIST changes: -LIDOCAINE HCL 4% LTA SOL 4 ML VIAL TP ONE
--- NOTE | 2025-04-11 10:53 | HMCIMG ---
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 No acute fractures or dislocations. No one destruction to suggest osteomyelitis.
== END | disposition home or self-care (01) ==
LOC: WHH 08:16
PROVIDERS: ATTEND Podiatrist Foot & Ankle Surgery
DX: E11.621 Type 2 diabetes mellitus with foot ulcer (principal); L97.521 Non-pressure chronic ulcer of other part of left foot limited to breakdown of skin; L03.116 Cellulitis of left lower limb; E11.42 Type 2 diabetes mellitus with diabetic polyneuropathy; I10 Essential (primary) hypertension; E78.5 Hyperlipidemia, unspecified; K21.9 Gastro-esophageal reflux disease without esophagitis; I48.91 Unspecified atrial fibrillation; N40.0 Benign prostatic hyperplasia without lower urinary tract symptoms; M21.6X9 Other acquired deformities of unspecified foot; Z79.899 Other long term (current) drug therapy
CPT/HCPCS: 87070; 87086 ×3; 87186 ×3; 73630; G0463; A6209 ×2; A4450

== ENCOUNTER → 2025-04-25 | Outpatient (CLI) | payer MEDICARE | END | disposition home or self-care (01) | LOC: WHH 08:26 | PROVIDERS: ATTEND Podiatrist Foot & Ankle Surgery | DX: E11.621 Type 2 diabetes mellitus with foot ulcer (principal); L97.521 Non-pressure chronic ulcer of other part of left foot limited to breakdown of skin; L84 Corns and callosities; L03.116 Cellulitis of left lower limb; E11.42 Type 2 diabetes mellitus with diabetic polyneuropathy; I10 Essential (primary) hypertension; E78.5 Hyperlipidemia, unspecified; K21.9 Gastro-esophageal reflux disease without esophagitis; I48.91 Unspecified atrial fibrillation; N40.0 Benign prostatic hyperplasia without lower urinary tract symptoms; M21.6X9 Other acquired deformities of unspecified foot; Z79.899 Other long term (current) drug therapy | CPT/HCPCS: 11055; A6209 ×2 ==

== ENCOUNTER → 2025-05-09 | Outpatient (CLI) | payer MEDICARE | END | disposition home or self-care (01) | LOC: WHH 08:12 | PROVIDERS: ATTEND Podiatrist Foot & Ankle Surgery | DX: E11.621 Type 2 diabetes mellitus with foot ulcer (principal); L97.522 Non-pressure chronic ulcer of other part of left foot with fat layer exposed; L84 Corns and callosities; L03.116 Cellulitis of left lower limb; E11.42 Type 2 diabetes mellitus with diabetic polyneuropathy; I10 Essential (primary) hypertension; E78.5 Hyperlipidemia, unspecified; K21.9 Gastro-esophageal reflux disease without esophagitis; I48.91 Unspecified atrial fibrillation; N40.0 Benign prostatic hyperplasia without lower urinary tract symptoms; M19.90 Unspecified osteoarthritis, unspecified site; M21.6X9 Other acquired deformities of unspecified foot; Z79.899 Other long term (current) drug therapy | CPT/HCPCS: 11042; A6021; A6209; A4450 ==

== ENCOUNTER → 2025-05-23 | Outpatient (CLI) | payer MEDICARE | END | disposition home or self-care (01) | LOC: WHH 08:12 | PROVIDERS: ATTEND Podiatrist Foot & Ankle Surgery | DX: E11.621 Type 2 diabetes mellitus with foot ulcer (principal); L97.522 Non-pressure chronic ulcer of other part of left foot with fat layer exposed; L84 Corns and callosities; L03.116 Cellulitis of left lower limb; E11.42 Type 2 diabetes mellitus with diabetic polyneuropathy; I10 Essential (primary) hypertension; E78.5 Hyperlipidemia, unspecified; K21.9 Gastro-esophageal reflux disease without esophagitis; I48.91 Unspecified atrial fibrillation; N40.0 Benign prostatic hyperplasia without lower urinary tract symptoms; M19.90 Unspecified osteoarthritis, unspecified site; M21.6X9 Other acquired deformities of unspecified foot; Z79.899 Other long term (current) drug therapy | CPT/HCPCS: 11042; A6021; A6196 ×4 ==

== ENCOUNTER → 2025-06-20 | Outpatient (CLI) | payer MEDICARE | END | disposition home or self-care (01) | LOC: WHH 08:09 | PROVIDERS: ATTEND Podiatrist Foot & Ankle Surgery | DX: E11.621 Type 2 diabetes mellitus with foot ulcer (principal); L97.522 Non-pressure chronic ulcer of other part of left foot with fat layer exposed; L84 Corns and callosities; L03.116 Cellulitis of left lower limb; E11.42 Type 2 diabetes mellitus with diabetic polyneuropathy; I10 Essential (primary) hypertension; E78.5 Hyperlipidemia, unspecified; K21.9 Gastro-esophageal reflux disease without esophagitis; I48.91 Unspecified atrial fibrillation; B35.1 Tinea unguium; N40.0 Benign prostatic hyperplasia without lower urinary tract symptoms; M19.90 Unspecified osteoarthritis, unspecified site; M21.6X9 Other acquired deformities of unspecified foot; Z79.899 Other long term (current) drug therapy | CPT/HCPCS: 11042; A6021; A6197 ×2; A4450 ==